=== PATIENT | female | born 2000 | race Caucasian/White ===

== ENCOUNTER → 2024-08-10 11:21 | Outpatient (REF) | payer OTHER, SELFPAY | LOC: RAD 11:21 | PROVIDERS: ATTENDING PHYSICIAN Physician Assistant Medical | DX: R76.12 Nonspecific reaction to cell mediated immunity measurement of gamma interferon antigen response without active tuberculosis (principal) | CPT/HCPCS: 71046 ==

== ENCOUNTER 2024-12-02 11:25 | Emergency (ER) | payer OTHER, SELFPAY ==
[2024-12-02 11:42] VITALS: BP 104/76
[2024-12-02] MEDS: NSS 1000 IV (12:33)
[2024-12-02] MEDS: PEPCID 20 MG IV (12:34)
[2024-12-02] MEDS: ADRENALIN 0.3 MG IM (12:35)
[2024-12-02] MEDS: BENADRYL 25 MG IV (12:35)
[2024-12-02] MEDS: DECADRON 10 MG IV (12:35)
--- NOTE | 2024-12-02 13:03 | ED.GENMED ---
History of Present Illness
General
Chief Complaint: Allergic Reaction
Source: patient and family (Mom at bedside)
Exam Limitations: none
Time Seen by Provider: 12/02/24 12:11
Nursing documentation reviewed up to this point in time: agreed with
History of Present Illness
History of Present Illness:
23-year-old female with no significant past medical history states she finished a 10-day regimen of cefdinir for an ear infection 2 days ago. That same day she developed itchy red spots on her elbows and this itchy rash has slowly spread to now her
entire body and while she was waiting to be examined here her upper lip started to swell also. She has taken 3 doses of Benadryl, the last 1 was 9 PM last night. Her ear still feels clogged but is improving. She denies trouble swallowing or
speaking. Denies chest pain or trouble breathing. She denies feeling faint or dizzy.
Past History
Past History
ED Past Medical History: None
ED Past Surgical History: None
Social History
Tobacco: Non-smoker
Alcohol: None
Personal: Single
Living: with family
Employment: Employed
Review of Systems
Review of Systems
Allergies reviewed?: Yes
All Other Systems: ROS reviewed and negative except as documented in HPI and ROS
Constitutional: Denies fever or chills
EENT: Denies sore throat or mouth swelling (swelling upper lip only)
Respiratory: Denies cough or trouble breathing
Cardiac: Denies chest pain
ABD/GI: Denies abdominal pain, nausea, vomiting or diarrhea
Musculoskeletal: Reports no symptoms
Skin: Reports itching and rash
Neurological: Reports no symptoms
Phy Exam
Physical Exam
Physical Exam:
GENERAL: No acute distress. A&Ox3.
CONSTITUTIONAL: Afebrile.
EYES: clear, conjunctivae normal
ENMT: moist mucus membranes, Pharynx nl, small hive upper lip
RESPIRATORY: Regular respirations, nonlabored, lungs clear.
CARDIOVASCULAR: Regular rate and rhythm, no murmurs, no rubs.
GI: Soft, nontender, normal BS
MUSCULOSKELETAL: Moves with ease. Well perfused.
SKIN: Warm, dry, pink, scattered hives generally over body, mild hive mid upper lip with swelling
PSYCH: Normal mood and affect. Well kept, interactive and appropriate
NEUROLOGIC: Awake, alert and oriented. No focal neurological deficits
Course
Orders/Labs/Results
Orders:
Orders
12/02/24 12:15
0.9% Sodium Chloride 1000 ml [Nss] 1,000 ml IV BOLUS
12/02/24 12:16
Dexamethasone Sod Phosphate [Decadron] 10 mg IV NOW STA
Diphenhydramine [Benadryl] 25 mg IV NOW STA
EPINEPHrine PF [Adrenalin] 0.3 mg IM NOW STA
Famotidine [Pepcid] 20 mg IV NOW STA
Vital Signs
Initial and Last Documented VS:
Initial Vital Signs
Temp Pulse Resp BP Pulse Ox
97.8 F 95 20 104/76 100
12/02/24 11:42 12/02/24 11:42 12/02/24 11:42 12/02/24 11:42 12/02/24 11:42
Last Documented Vital Signs
Temp Pulse Resp BP Pulse Ox
97.8 F 92 25 121/66 98
12/02/24 11:42 12/02/24 14:15 12/02/24 14:15 12/02/24 14:09 12/02/24 14:09
MDM/Problems Addressed
Differential Diagnosis Includes:
allergic reaction, delayed drug reaction, anaphylaxis
MDM/Problems Addressed:
23-year-old female with no significant past medical history states she finished a 10-day regimen of cefdinir for an ear infection 2 days ago. That same day she developed itchy red spots on her elbows and this itchy rash has slowly spread to now her
entire body and while she was waiting to be examined here her upper lip started to swell also. She has taken 3 doses of Benadryl, the last 1 was 9 PM last night. Her ear still feels clogged but is improving. She denies trouble swallowing or
speaking. Denies chest pain or trouble breathing. She denies feeling faint or dizzy.
Afebrile, NAD
1:00 p.m.
Feeling much better after meds and IVFs, hives are gone
2:00 p.m.
Remains improved
Stable for discharge
Rx for Prednisone sent to pharmacy
*Critical Care Note
Total Time (30-74mins, 75-104mins- exclusive of procedures): Not Applicable
ED Attending Note
-
Portions of this chart may have been created with voice recognition software.� Occasional wrong word or��sound alike� substitutions may have occurred due to the inherent limitations of voice recognition software.
Discharge Plan
Departure
Patient Disposition: Home (Routine Discharge)
Date of Disposition: 12/02/24
Time of Disposition: 14:06
Patient with high blood pressure during this ER visit?: No
Condition: Good
Discharge Problem:
Adverse drug reaction
Instructions: Adverse Drug Reactions, Adult ED
Prescriptions:
New
prednisone 20 mg tablet
40 mg PO DAILY Qty: 6 0RF
No Action
Control
1 tab PO DAILY
Vitamin B2
400 mg PO DAILY
prednisolone sodium phosphate 15 MG/5 ML solution
10 ml PO DAILY 3 Days Qty: 30 0RF
Rx Instructions:
Take Prelone starting tomorrow, once daily x 3 days
ondansetron 4 MG tablet,disintegrating
4 mg PO Q8H PRN (Reason: Nausea and Vomiting) 10 Days Qty: 15 0RF
hydrocodone-acetaminophen 15 ML solution
15 ml PO Q4HPRN PRN (Reason: Pain) Qty: 475 0RF
Referrals:
Ana Mello MD [Family Provider] - As needed
Stand Alone Forms: Back to School
Activity Restrictions/Additional Instructions:
As we discussed, I sent a prescription to your pharmacy for prednisone 40 mg a day for 3 days. Start it tomorrow as you were given a dose of steroid here today
You may continue Benadryl 25-50 mg every 6 hours if needed
Return here immediately for worse swelling, difficulty swallowing, worsening rash or feeling sicker in any way.
Consider yourself allergic to cefdinir
Interventions
Interventions:
*Risk Screen - Suicide Last Done: 12/02/24 11:42
*General Assessment Last Done: 12/02/24 11:42
*Neglect/Abuse Screening Last Done: 12/02/24 11:42
*ED- Fall Risk Assessment Last Done: 12/02/24 12:07
*ED COVID-19 Vaccine History Last Done: 12/02/24 12:07
*Nursing Disposition Last Done: 12/02/24 14:18
ED- Cardiac Assessment Last Done: 12/02/24 12:07
ED- Pulmonary Assessment Last Done: 12/02/24 12:07
ED-Skin Assessment Last Done: 12/02/24 12:07
Discharge Date and Time
Discharge Date/Time: 12/02/24 14:52
Print Language: CHADIAN
[2024-12-02 14:00] VITALS: BP 122/76
[2024-12-02 14:09] VITALS: BP 121/66
== END 2024-12-02 14:52 | disposition home or self-care (01) ==
LOC: EMR 11:25
PROVIDERS: EMERGENCY PHYSICIAN Emergency Medicine; FAMILY PHYSICIAN Obstetrics & Gynecology Gynecology
DX: L27.0 Generalized skin eruption due to drugs and medicaments taken internally (principal); T36.1X5A Adverse effect of cephalosporins and other beta-lactam antibiotics, initial encounter
CPT/HCPCS: 96374; 96375; 96372; 96361; 99284